=== PATIENT | male | born 1945 | race Caucasian/White ===

== ENCOUNTER → 2016-04-21 | Outpatient (CLI) | payer OTHER | LOC: FIMAGING 07:29 | PROVIDERS: ATTEND Physician Assistant | DX: M47.896 Other spondylosis, lumbar region (principal) ==

== ENCOUNTER 2016-08-31 15:21 | Inpatient (IN) | payer OTHER ==
--- NOTE | 2016-08-31 15:59 | CPEKG ---
Heart Rate: 105 RR Interval: 571 QRSD Interval: 80 QT Interval: 300 QTC Interval: 397 QRS [place]: 34 T Wave [place]: 226 EKG Severity - ABNORMAL ECG - EKG Impression: ATRIAL FIBRILLATION EKG Impression: PAIRED VENTRICULAR PREMATURE COMPLEXES Electronically Signed By: Penelope Lopez 31-Aug-2016 22:31:41
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
[2016-08-31 16:32] LABS: % IMMATURE GRANULYOCYTES 0.6 % (0.0-1.1); ABSOLUTE IMMATURE GRANULOCYTES 0.06 10^3/uL (0.00-0.10); ADD DIFF? NO; ADD MORPH? NO; ADD SCAN? NO; ATYPICAL LYMPHOCYTE FLAG 0 (0-99); FRAGMENT RBC FLAG 0 (0-99); HEMATOCRIT 46.9 % (40.0-51.0); HEMOGLOBIN 16.4 g/dL (13.7-17.5); LEFT SHIFT FLG 0 (0-99); LIPEMIA HEMOLYSIS FLAG 90 (0-99); MEAN CELL HEMOGLOBIN 31.5 pg (27.9-34.1); MEAN CELL VOLUME 90.2 fL (81.5-99.8); MEAN PLATELET VOLUME 9.7 fL (8.7-11.7); PLATELET CLUMPS FLAG 10 (0-99); PLATELET COUNT 213 10^3/uL (150-400); RED CELL DISTRIBUTION WIDTH 13.1 % (11.5-15.2)
[2016-08-31 16:38] LABS: ANION GAP 13 mEq/L (8-16); CALCIUM 9.8 mg/dL (8.5-10.4); CARBON DIOXIDE 20 mEq/l (22-31); CHLORIDE 99 mEq/L (97-110); CREATININE 0.9 mg/dL (0.7-1.3); GLOMERULAR FILTRATION RATE > 60; GLUCOSE 85 mg/dL (70-100); POTASSIUM 4.7 mEq/L (3.5-5.2); SODIUM 132 mEq/L (134-144); SPECIMEN HEMOLYSIS 100
[2016-08-31] MEDS ORDERED: IOPAMIDOL (ISOVUE 370) 100 ML BTL IV ONE (18:27)
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
[2016-08-31] MEDS: CLOPIDOGREL BISULFATE 75 MG TAB PO SCH (21:14)
[2016-09-01 05:14] LABS: CHOLESTEROL 115 mg/dL (140-220); CHOLESTEROL/HDL RATIO 3.11 RATIO (1.00-4.97); HIGH DENSITY LIPOPROTEIN 37 mg/dL (40-65); LDL/HDL RATIO 1.49 RATIO (1.00-3.64); LOW DENSITY LIPOPROTEIN 55 mg/dL (80-100); NON-HIGH DENSITY LIPOPROTEIN 78 mg/dL (90-129); TRIGLYCERIDE 115 mg/dL (40-150); VERY LOW DENSITY LIPOPROTEINS 23 mg/dL (8-25)
[2016-09-01] MEDS: ATORVASTATIN CALCIUM 10 MG TAB PO SCH (08:47)
[2016-09-01] MEDS: CLOPIDOGREL BISULFATE 75 MG TAB PO SCH (08:47)
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
[2016-09-01 10:42] LABS: HEMOGLOBIN A1C 5.4 % (4.0-6.0)
--- NOTE | 2016-09-01 11:25 | ECHO ---
[id number] + + [address] : : [place] [address] : : [phone] + Adult Echocardiographic Report + ------+ :Name: EFREM GONZÁLES LStudy Date: 09/01/2016 08:11 AM : : Hospital Admission Number: [id number] Locatio n: 353: :: 1945 Gender: Male Height: 69 in : :Age: 71 yrs Race: WH,White Weight: 220 lb : :Reason For Study: Eval for Embolic Source : : BSA: 2.2 meters 2 : :History: TIA, History of AVR, Atrial Fibrillation : + ------+ MMode/2D Measurements \T\ Calculations IVSd: 1.2 cm LVIDd: 4.6 cm FS: 37.4 % Ao root diam: 3.4 cm LVPWd: 1.3 cm LVIDs: 2.9 cm EDV(Teich): 96.9 ml ACS: 1.8 cm ESV(Teich): 31.5 ml EF(Teich): 67.5 % LVOT diam: 2.2 cm LVOT area: 3.8 cm2 Normal Measurement Values: + + :LVIDd (3.5-5.7cm) IVSd (0.6-1.1cm) LVPWd (0.6-1.1cm) Aortic Root (2.0-3.7cm)Left Atrium (1.5-4.0cm): :LV Vol(d) (76-115ml) LV Vol(s) (29-48ml) Ejec Fraction (50-65%)PV Miller (0.6- 1.2m/s) TV Miller (0.4-1.0m/s) : :MV E Miller (0.8-1.0m/s)MV A Miller (0.3-1.0m/s)LVOT Miller (0.7-1.2m/s) Asc Ao Miller ( 0.9-1.8m/s) : + + Doppler Measurements \T\ Calculations MV E max miller: Ao V2 max: LV V1 max: SV(LVOT): 86.4 cm/sec 283.7 cm/sec 95.3 cm/sec 100.8 ml MV A max miller: Ao max P.2 mmHgLV V1 max P.7 cm/sec Ao mean P.6 mmHg MV E/A: 0.86 19.1 mmHg LV V1 mean PG: Ao V2 mean: 1.7 mmHg 205.9 cm/sec LV V1 mean: Ao V2 VTI: 63.8 cm 58.4 cm/sec LV V1 VTI: 26.5 cm MELODY(I,D): 1.6 cm2 MELODY(V,D): 1.3 cm2 PA V2 max: 160.2 cm/sec PA max P.3 mmHg Left Ventricle The left ventricle is normal in size. There is mild concentric left ventricular hypertrophy. The left ventricular ejection fraction is normal. There is Doppler evidence for diastolic dysfunction. Ejection Fraction = 68%. The left ventricular wall motion is normal. Right Ventricle The right ventricle is normal in size and function. Atria The left atrial size is normal. Right atrial size is normal. Mitral Valve There is mild mitral annular calcification. There is no mitral valve stenosis. There is no mitral regurgitation noted. Tricuspid Valve The tricuspid valve is normal in structure and function. There is trace tricuspid regurgitation. Aortic Valve There is a bioprosthetic valve in the aortic position. It is not well seen. The mean gradient is 19 mmHg c/w mild aortic stenosis. There is no aortic insufficiency. Pulmonic Valve The pulmonic valve is not well visualized. There is no pulmonic valvular regurgitation. Great Vessels The aortic root is normal size. Pericardium/Pleural There is no pericardial effusion. Conclusion A complete two-dimensional transthoracic echocardiogram was performed (2D, M-mode, Doppler and color flow Doppler). 1. The left ventricle is normal in size. There is mild concentric left ventricular hypertrophy. The Ejection Fraction = 68%. 2. There is mild mitral annular calcification. There is no mitral regurgitation noted. 3. There is a bioprosthetic valve in the aortic position. It is not well seen. The mean gradient is 19 mmHg c/w mild aortic stenosis. There is no aortic insufficiency. 4. When compared to the 06/06/12 study. The aortic valve has been replaced. 5. No source of emboli detected on TTE. Consider UVALDO if clinically indicated. Final Reading Physician: Teo Tariq MD electronically signed on 09/01/2016 11:23 AM Ordering Physician: Gerber Luna Performed By: Anant Cr, HEMACS
[2016-09-01 12:58] LABS: MAGNESIUM 2.2 mg/dL (1.6-2.3); POTASSIUM 4.8 mEq/L (3.5-5.2)
--- NOTE | 2016-09-01 14:11 | HOSPPROG ---
Hospitalist Progress Note Assessment/Plan: Patient is a 71-year-old male with a history of hypertension aortic valve replacement who presented with a right-sided visual field cut. Today is my 1st encounter with the patient. Chart reviewed. * Subacute ischemic stroke this is noted in the left occipital area he was not a candidate for tPA due to the timing will need anticoagulation in 10-14 days/ cardiology to see today prior to discharge in the interim he will be bridged with aspirin therapy of 325 mg, prior to this he had been on 81 mg LDL is 55 A1C is 5.4 reviewed telelmetry strips/ did not see any afib, but sinus w frequent PVC's * right vision loss secondary from the stroke * hypertension normotensive * hyperlipidemia statin therapy * history of atrial fibrillation * bioprosthetic aortic valve replacement * obstructed sleep apnea on CPAP * plan. Will ask Cardiology to follow up and recommend anticoagulation. To follow up with Neurology in 4-6 weeks. Subjective: Boyd is feeling fine except for a mild headache. Objective: Vital Signs Temp Pulse Resp BP Pulse Ox 36.6 C 82 16 137/98 H 95 09/01/16 12:37 09/01/16 12:37 09/01/16 12:37 09/01/16 12:52 09/01/16 12:37 Laboratory Results 09/01/16 12:26 08/31/16 09/01/16 09/02/16 05:59 05:59 05:59 Intake Total 1200 Balance 1200 - Physical Exam Constitutional: no apparent distress Ears, Nose, Mouth, Throat: hearing normal Cardiovascular: regular rate and rhythym, other (few early beats) Respiratory: no respiratory distress Gastrointestinal: normoactive bowel sounds Skin: warm, normal color Musculoskeletal: full muscle strength Neurologic: AAOx3, sensation intact bilaterally, CN II-XII Intact, No weakness, No numbness, No pronator drift, No facial droop Psychiatric: interacting appropriately, not anxious, not encephalopathic ICD10 Worksheet Patient Problems: Problems Problem Status Onset Occipital infarction Acute
--- NOTE | 2016-09-01 14:23 | CPEKG ---
Heart Rate: 80 RR Interval: 750 P-R Interval: 164 QRSD Interval: 82 QT Interval: 372 QTC Interval: 430 P [place]: 59 QRS [place]: 12 T Wave [place]: 50 EKG Severity - ABNORMAL ECG - EKG Impression: SINUS RHYTHM EKG Impression: PAIRED VENTRICULAR PREMATURE COMPLEXES EKG Impression: LEFT ATRIAL ABNORMALITY Electronically Signed By: Teo Carrera 01-Sep-2016 16:04:15
[2016-09-01] MEDS: ASPIRIN EC 325 MG TAB PO SCH (14:43)
--- NOTE | 2016-09-01 15:24 | PDIAF ---
- Diagnosis Diagnosis: subacute stroke - Medication Management Discharge Medications: Medications to Continue on Transfer Atorvastatin Calcium [Lipitor 10 mg (*)] 10 mg PO DAILY 05/04/15 [Last Taken ] Verapamil ER [Calan SR/ER 240MG (*)] 240 mg PO DAILY8 05/04/15 [Last Taken 08/31] Aspirin EC [Aspirin EC 325 mg (*)] 325 mg PO DAILY tab 09/01/16 [Last Taken Unknown] Discharge Medications: Refer to the Discharge Home Medication list for PRN reason. - Orders Services needed: Home Care, Physical Therapy, Occupational Therapy, Speech Language Pathologist Home Care Face to Face: I certify that this patient was under my care and that I had the required [id number] encounter meeting the encounter requirements on the discharge day. My findings support the fact that the patient is homebound as defined in CMS Chapter 7 Medicare Benefits Manual 30.1.1, The condition of the patient is such that there exists a normal inability to leave home and consequently, leaving home would require a considerable and taxing effort. Diet Recommendation: no restrictions on diet Diet Texture: Regular Texture Diet Additional: patient has some vision loss in right eye/ please evaluate home for safety, etc - Follow Up Care Current Providers and Referrals: Cristiano Lincoln MD [Medical Doctor] - Max Urias DO [Doctor of Osteopathy] - Jeferson Kearns MD [Primary Care Provider] - As per Instructions
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
[2016-09-02 05:07] LABS: ANION GAP 10 mEq/L (8-16); CALCIUM 9.6 mg/dL (8.5-10.4); CARBON DIOXIDE 21 mEq/l (22-31); CHLORIDE 105 mEq/L (97-110); CREATININE 0.9 mg/dL (0.7-1.3); GLOMERULAR FILTRATION RATE > 60; GLUCOSE 87 mg/dL (70-100); POTASSIUM 4.3 mEq/L (3.5-5.2); SODIUM 136 mEq/L (134-144)
[2016-09-02] MEDS ORDERED: NS 1,000 ML IV SCH (06:00)
[2016-09-02] MEDS ORDERED: fentaNYL 100 MCG/2 ML INJ IVP ONE (06:36)
[2016-09-02] MEDS ORDERED: BENZOCAINE UNIT DOSE SPRAY HURRICAINE MM ONE (06:36)
[2016-09-02] MEDS ORDERED: NS 1,000 ML IV ONE (06:36)
[2016-09-02] MEDS ORDERED: MIDAZOLAM 2 MG/2 ML VIAL IVP ONE (06:36)
[2016-09-02] MEDS ORDERED: MIDAZOLAM 2 MG/2 ML VIAL ONE (09:31)
[2016-09-02] MEDS ORDERED: fentaNYL 100 MCG/2 ML INJ ONE (09:31)
[2016-09-02] MEDS ORDERED: LIDOCAINE 1% 300 MG/30 ML SDV ONE (13:15)
[2016-09-02] MEDS ORDERED: LIDOCAINE 1% 5 ML SDV ID ONE (13:30)
--- NOTE | 2016-09-02 14:18 | CPIP ---
[f rep st] INVASIVE CARDIAC PROCEDURE DATE OF PROCEDURE: 09/02/2016 PROCEDURE: Implantation of a Medtronic LINQ. INDICATIONS: The patient is 71 years old. He has a history of previous bioprosthetic aortic valve replacement surgery and a distant history of an episode of atrial fibrillation. He presents now wit h an occipital infarct. TECHNIQUE: Following informed consent, in the fasting state, the patient was brought to the CVC. T he 4th intercostal space was identified by landmarks. This area was infiltrated with lidocaine. A #15 blade was used to make a small incision. The Medtronic LINQ was then "injected" underneath the skin. The wound was closed with 2 hayde. COMPLICATIONS: None. DISPOSITION: Patient will be returned to his room and discharged home likely later today. /[id number]/MODL
[2016-09-02] MEDS: ASPIRIN EC 325 MG TAB PO SCH (14:31)
[2016-09-02] MEDS: ATORVASTATIN CALCIUM 10 MG TAB PO SCH (14:31)
--- NOTE | 2016-09-02 15:30 | HOSPPROG ---
Hospitalist Progress Note Assessment/Plan: Patient is a 71-year-old male with a history of hypertension aortic valve replacement who presented with a right-sided visual field cut. * Subacute ischemic stroke this is noted in the left occipital area he was not a candidate for tPA due to the timing will need anticoagulation in 10-14 days in the interim he will be bridged with aspirin therapy of 325 mg, prior to this he had been on 81 mg LDL is 55 A1C is 5.4 reviewed telemetry strips/ did not see any afib, but sinus w frequent PVC's UVALDO did not show any emboli/ LINQ monitor placed this afternoon. continues to have vision loss in his r eye/ he knows not to drive till cleared by neurology, likely needs to see an glazier apprentice in addition * right vision loss secondary from the stroke * hypertension normotensive * hyperlipidemia statin therapy * history of atrial fibrillation * bioprosthetic aortic valve replacement * obstructed sleep apnea on CPAP * plan. s/p UVALDO (with Dr Tariq)/ patient received sedation and lives alone/ LINQ monitor placed this after noon by Dr Samaniego/Dr Tariq spoke with Leopoldo EMERSON who works with Dr Lincoln. The patient will need close f/u with Dr Lincoln in the next week to discuss anticoagulation. Very appreciative of the cardiology teams involvement. He will be dc in the a.m. as long as he is stable. Subjective: Boyd has no complaints. Objective: Vital Signs Temp Pulse Resp BP Pulse Ox 36.6 C 52 L 18 121/87 H 93 09/02/16 14:41 09/02/16 14:41 09/02/16 14:41 09/02/16 14:41 09/02/16 14:41 Laboratory Results 09/02/16 04:28 09/01/16 09/02/16 09/03/16 05:59 05:59 05:59 Intake Total 1250 Balance 1250 - Physical Exam Constitutional: no apparent distress, appears nourished, not in pain Ears, Nose, Mouth, Throat: hearing normal Cardiovascular: regular rate and rhythym Respiratory: no respiratory distress Gastrointestinal: normoactive bowel sounds Skin: warm, normal color Musculoskeletal: full muscle strength Neurologic: AAOx3, No facial droop Psychiatric: interacting appropriately, not anxious ICD10 Worksheet Patient Problems: Problems Problem Status Onset Occipital infarction Acute
[2016-09-02] MEDS ORDERED: ACETAMINOPHEN 325 MG TAB PO PRN (22:00)
[2016-09-03] MEDS: ASPIRIN EC 325 MG TAB PO SCH (08:08)
[2016-09-03] MEDS: ATORVASTATIN CALCIUM 10 MG TAB PO SCH (08:08)
[2016-09-03] MEDS ORDERED: VERAPAMIL ER 120 MG TAB PO SCH (11:00)
--- NOTE | 2016-09-03 11:11 | PDIAF ---
- Diagnosis Diagnosis: subacute stroke - Medication Management Discharge Medications: Medications to Continue on Transfer Atorvastatin Calcium [Lipitor 10 mg (*)] 10 mg PO DAILY 05/04/15 [Last Taken ] Aspirin EC [Aspirin EC 325 mg (*)] 325 mg PO DAILY tab 09/01/16 [Last Taken Unknown] Verapamil ER [Calan SR/ER 120MG (*)] 120 mg PO DAILY #10 tab 09/03/16 [Last Taken Unknown] Discharge Medications: Refer to the Discharge Home Medication list for PRN reason. - Orders Services needed: Home Care, Physical Therapy, Occupational Therapy, Speech Language Pathologist Home Care Face to Face: I certify that this patient was under my care and that I had the required [id number] encounter meeting the encounter requirements on the discharge day. My findings support the fact that the patient is homebound as defined in CMS Chapter 7 Medicare Benefits Manual 30.1.1, The condition of the patient is such that there exists a normal inability to leave home and consequently, leaving home would require a considerable and taxing effort. Diet Recommendation: no restrictions on diet Diet Texture: Regular Texture Diet Additional: patient has some vision loss in right eye/ please evaluate home for safety, etc. Boyd needs f/u with an opthamologist. Has right sided vision loss. See Dr Lincoln next week and Dr Urias in 4 weeks. - Follow Up Care Current Providers and Referrals: Cristiano Lincoln MD [Medical Doctor] - Max Urias DO [Doctor of Osteopathy] - Jeferson Kearns MD [Primary Care Provider] - As per Instructions
[2016-09-03 12:00] VITALS: BP 133/81; PULSE 72; RESP 18; TEMP 98.1; O2SAT 92
--- NOTE | 2016-09-03 13:14 | HOSPPROG ---
Hospitalist Progress Note Assessment/Plan: Patient is a 71-year-old male with a history of hypertension aortic valve replacement who presented with a right-sided visual field cut. * Subacute ischemic stroke this is noted in the left occipital area he was not a candidate for tPA due to the timing will need anticoagulation in 10-14 days in the interim he will be bridged with aspirin therapy of 325 mg, prior to this he had been on 81 mg LDL is 55 A1C is 5.4 reviewed telemetry strips/ did not see any afib, but sinus w frequent PVC's UVALDO did not show any emboli/ LINQ monitor placed this afternoon. continues to have vision loss in his r eye/ he knows not to drive till cleared by neurology, likely needs to see an diesel tractor engine mechanic in addition * right vision loss secondary from the stroke * hypertension normotensive * hyperlipidemia statin therapy * history of atrial fibrillation has been in sinus during his stay * bioprosthetic aortic valve replacement * obstructed sleep apnea on CPAP * plan. dc home/home care, close f/u with cardiology and neurology Subjective: Boyd is feeling fine, bored and looking forward to going home. Objective: Vital Signs Temp Pulse Resp BP Pulse Ox 36.7 C 72 18 133/81 H 92 09/03/16 11:59 09/03/16 11:59 09/03/16 11:59 09/03/16 11:59 09/03/16 11:59 Laboratory Results 09/02/16 04:28 09/02/16 09/03/16 09/04/16 05:59 05:59 05:59 Intake Total 1250 800 400 Balance 1250 800 400 - Physical Exam Constitutional: no apparent distress, appears nourished, not in pain Ears, Nose, Mouth, Throat: hearing normal Cardiovascular: regular rate and rhythym, other (extra beats) Respiratory: no respiratory distress Gastrointestinal: normoactive bowel sounds Skin: warm Musculoskeletal: full muscle strength Neurologic: AAOx3, asterixes, No facial droop Psychiatric: interacting appropriately, not anxious ICD10 Worksheet Patient Problems: Problems Problem Status Onset Occipital infarction Acute
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
== END 2016-09-03 15:03 | disposition home or self-care (01) | DRG 42 ==
LOC: F3N 18:47 → OBSVTOIN 09-01 15:46
PROVIDERS: ADMIT Internal Medicine; ATTEND Internal Medicine
PROC: 0JH632Z Insertion of Monitoring Device into Chest Subcutaneous Tissue and Fascia, Percutaneous Approach (ICD-10-PCS; principal; 2016-09-01)
DX: I63.59 Cerebral infarction due to unspecified occlusion or stenosis of other cerebral artery (principal); H53.9 Unspecified visual disturbance; I48.0 Paroxysmal atrial fibrillation; G47.33 Obstructive sleep apnea (adult) (pediatric); I10 Essential (primary) hypertension; E78.5 Hyperlipidemia, unspecified; Z95.2 Presence of prosthetic heart valve
CPT/HCPCS: 92507-GN; 92523-GN; 97161-GP; 97165-GO; C1764; G0378; G8978-GP-CI; G8979-GP-CI; G8980-GP-CI; G8987-GO-CI; G8988-GO-CI; G8989-GO-CI; G9165-GN-CI; G9166-GN-CH; J2250; J3010; Q9967

== ENCOUNTER 2016-10-18 12:38 | Observation (INO) | payer OTHER ==
--- NOTE | 2016-10-18 12:50 | CPEKG ---
Heart Rate: 80 RR Interval: 750 P-R Interval: 164 QRSD Interval: 86 QT Interval: 404 QTC Interval: 466 P [place]: 63 QRS [place]: 27 T Wave [place]: 5 EKG Severity - ABNORMAL ECG - EKG Impression: SINUS RHYTHM EKG Impression: VENTRICULAR BIGEMINY EKG Impression: Similar to previous Electronically Signed By: Max Gonzalez 18-Oct-2016 13:22:57
[2016-10-18 13:27] LABS: ANION GAP 16 mEq/L (8-16); CALCIUM 9.9 mg/dL (8.5-10.4); CARBON DIOXIDE 20 mEq/l (22-31); CHLORIDE 105 mEq/L (97-110); CREATININE 0.9 mg/dL (0.7-1.3); GLOMERULAR FILTRATION RATE > 60; GLUCOSE 75 mg/dL (70-100); POTASSIUM 4.1 mEq/L (3.5-5.2); SODIUM 141 mEq/L (134-144)
[2016-10-18 13:30] LABS: % IMMATURE GRANULYOCYTES 0.3 % (0.0-1.1); ABSOLUTE IMMATURE GRANULOCYTES 0.02 10^3/uL (0.00-0.10); ADD DIFF? NO; ADD MORPH? NO; ADD SCAN? NO; ATYPICAL LYMPHOCYTE FLAG 10 (0-99); FRAGMENT RBC FLAG 0 (0-99); HEMATOCRIT 46.5 % (40.0-51.0); HEMOGLOBIN 16.2 g/dL (13.7-17.5); LEFT SHIFT FLG 0 (0-99); LIPEMIA HEMOLYSIS FLAG 90 (0-99); MEAN CELL HEMOGLOBIN 31.1 pg (27.9-34.1); MEAN CELL HEMOGLOBIN CONCENTR. 34.8 g/dL (32.4-36.7); MEAN CELL VOLUME 89.3 fL (81.5-99.8); MEAN PLATELET VOLUME 9.5 fL (8.7-11.7); PLATELET CLUMPS FLAG 0 (0-99); PLATELET COUNT 166 10^3/uL (150-400); RED BLOOD CELL COUNT 5.21 10^6/uL (4.40-6.38)
--- NOTE | 2016-10-18 13:36 | EDPHY ---
H & P Stated Complaint: cp for 4 hrs/hx of aortic valve repair Time Seen by Provider: 10/18/16 13:20 HPI/ROS: CHIEF COMPLAINT: Chest pain HISTORY OF PRESENT ILLNESS: Patient is a 71-year-old man with a history of recent occipital stroke, right-sided vision loss and atrial fibrillation as well as remote history of bioprosthetic aortic valve replacement who comes to the emergency department complaining of chest pressure for the last 5 hours. This began at rest. He denies shortness of breath does complain of increased pressure with deep inspiration. He denies any nausea vomiting or diaphoresis. No palpitations or lightheadedness. He is currently taking Eliquis. REVIEW OF SYSTEMS: Constitutional: denies: chills, fever, recent illness, recent injury EENTM: denies: blurred vision, double vision, nose congestion Respiratory: denies: cough, shortness of breath Cardiac: See HPI Gastrointestinal/Abdominal: denies: abdominal pain, diarrhea, nausea, vomiting, blood streaked stools Genitourinary: denies: dysuria, frequency, hematuria, pain Musculoskeletal: denies: joint pain, muscle pain Skin: denies: lesions, rash, jaundice, bruising Neurological: denies: headache, numbness, paresthesia, tingling, dizziness, weakness Hematologic/Lymphatic: denies: blood clots, easy bleeding, easy bruising Immunologic/allergic: denies: HIV/AIDS, transplant EXAM: GENERAL: Well-appearing, well-nourished and in no acute distress. HEAD: Atraumatic, normocephalic. EYES: Pupils equal round and reactive to light, extraocular movements intact, sclera anicteric, conjunctiva are normal. ENT: TMs normal, nares patent, oropharynx clear without exudates. Moist mucous membranes. NECK: Normal range of motion, supple without lymphadenopathy or JVD. LUNGS: Breath sounds clear to auscultation bilaterally and equal. No wheezes rales or rhonchi. HEART: Regular rate and rhythm without murmurs, rubs or gallops. ABDOMEN: Soft, nontender, normoactive bowel sounds. No guarding, no rebound. No masses appreciated. BACK: No CVA tenderness, no spinal tenderness, step-offs or deformities EXTREMITIES: Normal range of motion, no pitting or edema. No clubbing or cyanosis. NEUROLOGICAL: Cranial nerves II through XII grossly intact. Normal speech, normal gait. 5/5 strength, normal movement in all extremities, normal sensation PSYCH: Normal mood, normal affect. SKIN: Warm, dry, normal turgor, no visible rashes or lesions. Source: Patient Exam Limitations: No limitations - Personal History Current Tetanus/Diphtheria Vaccine: Yes Tetanus Vaccine Date: >10 YRS - Medical/Surgical History Hx Asthma: No Hx Chronic Respiratory Disease: No Hx Diabetes: No Hx Cardiac Disease: Yes Hx Renal Disease: No Hx Cirrhosis: No Hx Alcoholism: No Hx HIV/AIDS: No Hx Splenectomy or Spleen Trauma: No Other PMH: high chol, HTN, Aortic valve replacement, hernia surgery - Family History Significant Family History: No pertinent family hx - Social History Smoking Status: Never smoked Alcohol Use: Sober Drug Use: None Constitutional: Initial Vital Signs Temperature (C) 36.3 C 10/18/16 12:41 Heart Rate 79 10/18/16 12:41 Respiratory Rate 18 10/18/16 12:41 Blood Pressure 169/104 H 10/18/16 12:41 O2 Sat (%) 96 10/18/16 12:41 O2 Delivery Mode Room Air Allergies/Adverse Reactions: No Allergies [NKDA] Allergy (Verified 10/18/16 12:40) Home Medications: Medication Instructions Recorded Atorvastatin Calcium [Lipitor 10 10 mg PO DAILY 05/04/15 mg (*)] Verapamil ER [Calan SR/ER 120MG 120 mg PO DAILY #10 tab 09/03/16 (*)] Apixaban [Eliquis] 5 mg PO BID 10/18/16 Ascorbic Acid [Vitamin C 500 mg 500 mg PO DAILY 10/18/16 (*)] Vitamin B Complex [Super B-50 1 each PO DAILY 10/18/16 Complex] Pantoprazole Sodium [Protonix] 40 mg PO DAILY #30 tablet. 10/19/16 Medical Decision Making - Diagnostics EKG Interpretation: An EKG obtained and was read and documented in trace view. Please see trace view for full reading and report. Sinus rhythm with ventricular bigeminy, similar to previous ED Course/Re-evaluation: We discussed the patient's test results which are reassuring. He is still having mild symptoms. I offered admission for further workup and observation and he agrees with this plan. 2:50 p.m. I discussed the case with Dr GOVIND Ko who will admit to the medical service for continued workup. Differential Diagnosis: Partial list of the Differential diagnosis considered include but were not limited to; chest pain, arrhythmia, acute coronary disease and although unlikely based on the history and physical exam, I also considered PE, pneumonia , pneumothorax resection. I discussed these differential diagnoses and the plan with the patient as well as the usual and expected course. The patient understands that the diagnosis is provisional and that in medicine we are not always correct and that further workup is often warranted. Usual and customary warnings were given. All of the patient's questions were answered. The patient was instructed to return to the emergency department should the symptoms at all worsen or return, otherwise to followup with the physician as we discussed. - Data Points Laboratory Results: Laboratory Results 10/18/16 12:50 10/18/16 12:50 Medications Given: Discontinued Medications Apixaban (Eliquis) 5 mg PO BID CHER Stop: 04/16/17 20:59 Last Admin: 10/19/16 08:12 Dose: 5 mg Ascorbic Acid (Vitamin C) 500 mg PO DAILY CHER Stop: 04/17/17 08:59 Last Admin: 10/19/16 08:12 Dose: 500 mg Atorvastatin Calcium (Lipitor) 10 mg PO DAILY CHER Stop: 04/17/17 08:59 Last Admin: 10/19/16 08:12 Dose: 10 mg Ketorolac Tromethamine (Toradol) 15 mg IVP ONCE ONE Stop: 10/19/16 12:53 Last Admin: 10/19/16 13:18 Dose: 15 mg Verapamil HCl (Calan Sr) 120 mg PO DAILY CHER Stop: 04/17/17 08:59 Last Admin: 10/19/16 08:12 Dose: 120 mg Vitamin B Complex (Vitamin B Complex) 1 ea PO DAILY CHER Stop: 04/17/17 08:59 Last Admin: 10/19/16 08:12 Dose: 1 ea Departure - Departure Disposition: [facility] Inpatient Acute Clinical Impression: Chest pain Qualifiers: Chest pain type: unspecified Qualified Code(s): R07.9 - Chest pain, unspecified Condition: Good
[2016-10-18 13:37] LABS: TROPONIN I < 0.012 ng/mL (0.000-0.034)
[2016-10-18 13:45] LABS: APTT 39.2 SEC (23.0-38.0); INR 1.34 (0.83-1.16); PROTIME(PATIENT) 16.6 SEC (12.0-15.0)
[2016-10-18] MEDS ORDERED: HYDROCODONE/APAP 5/325 TAB PO PRN (15:03)
[2016-10-18] MEDS ORDERED: ONDANSETRON 4 MG/2 ML VIAL IVP PRN (15:03)
[2016-10-18] MEDS ORDERED: ONDANSETRON DISINTEGRATING 4 MG TAB PO PRN (15:03)
[2016-10-18] MEDS ORDERED: ACETAMINOPHEN 325 MG TAB PO PRN (15:03)
--- NOTE | 2016-10-18 17:59 | GHP ---
[f rep st] HISTORY AND PHYSICAL DATE OF ADMISSION: 10/18/2016 CHIEF COMPLAINT: Chest pain. HISTORY OF PRESENT ILLNESS: This is a 71-year-old male with a history of hypertension, hyperlipidem ia, and recent left occipital stroke with right visual deficits persistent, who presents with interm ittent chest pain that he describes as a straining, pressure-like pain in the left chest that he exp eriences, per his report, intermittently since his stroke, that began the morning of presentation at approximately 9:30 a.m. and has been persistent until my evaluation at approximately 3 p.m. The pa michelle describes no exertional component to this, or positional component, and believes it may be a l ittle worse when he takes a deep breath but cannot clearly say so. He cannot describe anything that clearly relieves the pain. The patient says the pain is not associated with nausea, vomiting, diap horesis, or clear shortness of breath. Denies any palpitations. Patient has had intermittent light headedness recently/dizziness that he attributes to his right eye vision deficits. He has been work ing with various contact lenses and glasses and believes that the vision deficits are occasionally p rovoked by changes in his glasses, contact lenses, or position. The patient denies any lower extrem ity edema. Denies any changes in his bowel habits, dysuria or hematuria. PAST MEDICAL HISTORY: 1. 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 2. Hypertension. 3. Hyperlipidemia. 4. Atrial fibrillation. 5. History of bioprosthetic aortic valve replacement. 6. Obstructive sleep apnea. 7. BPH. SOCIAL HISTORY: Negative for tobacco, alcohol, or illicit drugs. FAMILY HISTORY: Positive for a brother who has had multiple pacemakers placed and a sister with a h istory of a valve replacement. ADVANCE DIRECTIVES: Patient is full COR, full tube. REVIEW OF SYSTEMS: A 10-point review of systems is negative with the exception of that reported in the HPI. PHYSICAL EXAMINATION: VITAL SIGNS: Blood pressure 147/84, heart rate 56, respiratory rate 12, 96% on room air, 36.6. GENERAL: This is a very pleasant, middle-aged male in no acute distress. HEENT : Notable for moist mucous membranes. Eye exam is negative for any icterus. CARDIAC: Regular rat e and rhythm. A systolic murmur is appreciated. PULMONARY: He has good respiratory effort, is ledy ar to auscultation bilaterally. GASTROINTESTINAL: Positive bowel sounds. ABDOMEN: Soft and nonte nder in all 4 quadrants. MUSCULOSKELETAL: Negative for any lower extremity edema. SKIN: Negative for any rashes. NEUROLOGIC: He is alert and oriented x3. PSYCHIATRIC: He is pleasant and nick ative on interview and examination. DATA: White count 7.2, hematocrit 46.5, platelet count 166. INR of 1.34. Sodium 141, creatinine i s 0.9. Troponin is less than 0.012. EKG, which I personally reviewed and interpreted, shows sinus rhythm with PVCs with normal axis, normal intervals, and no acute ST-T changes. Chest x-ray, which I personally reviewed and interpreted, shows no acute infiltrates or edema. ASSESSMENT AND PLAN: This is a 71-year-old male, presenting with complaints of chest pain. 1. Acute chest pain. The patient has had several hours of symptoms without a troponin excursion, w hich is reassuring. EKG is also negative at presentation. Will admit the patient to the PCU for se rial troponins and EKGs. If he rules out overnight, can plan on stress testing in the morning. 2. Hypertension. Patient's blood pressure is adequately controlled on his home medications. We wi ll continue these. 3. Hyperlipidemia. We will continue patient's statin therapy without alteration. 4. Atrial fibrillation. The patient appears to be in sinus on monitoring. Will continue his Eliqu is and verapamil. 5. Bioprosthetic aortic valve replacement. Patient does not have any symptoms consistent with hear t failure. We will continue to monitor. 6. Recent cerebrovascular accident. Will continue patient's Eliquis and statin. 7. Diet: Cardiac. 8. Prophylaxis: Eliquis. DISPOSITION: I expect in less than 2 midnights, if the patient rules out and has negative stress te sting. I discussed the case with the emergency room physician. Patient will be triaged to the PCU for care. /[id number]/MODL
[2016-10-18] MEDS: APIXABAN 5 MG TAB PO SCH (20:50)
[2016-10-19 06:03] LABS: ANION GAP 14 mEq/L (8-16); CALCIUM 9.5 mg/dL (8.5-10.4); CARBON DIOXIDE 21 mEq/l (22-31); CHLORIDE 106 mEq/L (97-110); CREATININE 0.9 mg/dL (0.7-1.3); GLOMERULAR FILTRATION RATE > 60; GLUCOSE 73 mg/dL (70-100); POTASSIUM 3.9 mEq/L (3.5-5.2); SODIUM 141 mEq/L (134-144)
[2016-10-19] MEDS: APIXABAN 5 MG TAB PO SCH (08:12)
[2016-10-19] MEDS ORDERED: VERAPAMIL ER 120 MG TAB PO SCH (09:00)
[2016-10-19] MEDS ORDERED: ENOXAPARIN 40 MG/0.4 ML SYR SC SCH (09:00)
[2016-10-19] MEDS ORDERED: VITAMIN B COMPLEX 1 EA CAP/TAB PO SCH (09:00)
[2016-10-19] MEDS ORDERED: NON-FORMULARY NEW DRUG (Vitamin B Complex [Super B-50 Complex] 1 EACH) PO SCH (09:00)
[2016-10-19] MEDS ORDERED: ASCORBIC ACID 500 MG TAB PO SCH (09:00)
[2016-10-19] MEDS ORDERED: ATORVASTATIN CALCIUM 10 MG TAB PO SCH (09:00)
--- NOTE | 2016-10-19 09:48 | CPEKG ---
Heart Rate: 97 RR Interval: 619 P-R Interval: 172 QRSD Interval: 84 QT Interval: 388 QTC Interval: 493 P [place]: 63 QRS [place]: 20 T Wave [place]: -73 EKG Severity - ABNORMAL ECG - EKG Impression: SINUS RHYTHM EKG Impression: PAIRED VENTRICULAR PREMATURE COMPLEXES EKG Impression: PROBABLE LEFT ATRIAL ABNORMALITY EKG Impression: NONSPECIFIC T ABNORMALITIES, INFERIOR LEADS Electronically Signed By: Teo Carrera 19-Oct-2016 21:56:18
[2016-10-19 11:36] VITALS: PULSE 68
[2016-10-19] MEDS ORDERED: KETOROLAC 15 MG/1 ML SDV IVP ONE (12:52)
[2016-10-19] MEDS ORDERED: REGADENOSON 0.4 MG/5 ML SYR IVP ONE (14:23)
--- NOTE | 2016-10-19 14:56 | PDCARST ---
CAR Stress Test Results Type of Stress Test: Lexiscan stress test Indication: cp Description of Procedure: After informed consent was obtained, pt was established to ECG, blood pressure, HR and oximetry monitoring. STRESS EKG AND HEMODYNAMIC DATA. Resting heart rate: 80 BPM. Resting ECG: SR with frequent unifocal PVCs. Resting blood pressure: 152/92 mmHg. O2 saturation at rest: 95. Peak heart rate: 91 BPM. Peak blood pressure: 138/82 mmHg. Arrhythmias: frequent PVCs throughout. Symptoms: The patient experienced no typical symptoms of angina during stress or recovery. Stress/Infusion ECG: No change in rhythm with no significant ST/T wave changes. Stress/infusion O2 saturation: 92 Impression: Uneventful Lexiscan infusion Conclusion: Await nuclear images.
[2016-10-19 15:39] VITALS: BP 166/77; RESP 16; TEMP 97.7; O2SAT 94
--- NOTE | 2016-10-19 19:22 | GDS ---
[f rep st] DISCHARGE SUMMARY DISCHARGE DIAGNOSES: 1. Chest pain. 2. Hypertension. 3. Hyperlipidemia. 4. History of atrial fibrillation. HISTORY: For details, please see the history and physical dated October 18. In brief, the patient i s a 71-year-old male with history of hypertension, hyperlipidemia, and prior left occipital stroke w ho presents to the emergency department with chest pain. He was admitted to the hospital for furthe r evaluation. HOSPITAL COURSE: Patient was admitted to the cardiac telemetry unit. He had several hours of sympt oms with a negative troponin on arrival. He had 2 further negative troponins. His EKG was nonische anne. He underwent nuclear medicine stress testing which was negative for ischemia. 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 Cristiano Lincoln, in the outpatient setting. The patient is stable for disc [facility] [place] [facility]. DISPOSITION: Patient is discharged home in stable condition. DISCHARGE MEDICATIONS: Please see [facility] for completed outpatient medication list. He will contin ue all outpatient medications as prescribed including atorvastatin, verapamil, and Eliquis. New [facility] cations on discharge include Protonix 40 mg p.o. daily, #30, no refills. FOLLOWUP: 1. Dr. Cristiano Lincoln, cardiology. 2. Dr. Jeferson Kearns, primary care. /[id number]/MODL
== END 2016-10-19 19:11 | disposition home or self-care (01) ==
LOC: F2W 17:22
PROVIDERS: ADMIT Hospitalist; ATTEND Hospitalist
DX: R07.9 Chest pain, unspecified (principal); I10 Essential (primary) hypertension; E78.5 Hyperlipidemia, unspecified; I69.398 Other sequelae of cerebral infarction; G47.33 Obstructive sleep apnea (adult) (pediatric); Z86.79 Personal history of other diseases of the circulatory system; Z95.2 Presence of prosthetic heart valve
CPT/HCPCS: 71020; 78452; 93005; 93017; 99285; A9500; G0378; J1885; J2785

== ENCOUNTER 2017-02-20 21:12 | Emergency (ER) | payer OTHER ==
[2017-02-20 21:19] VITALS: TEMP 98.6
--- NOTE | 2017-02-20 21:24 | EDPHY ---
H & P Stated Complaint: chest congestion, cough, fatigue Time Seen by Provider: 02/20/17 21:24 - Personal History Current Tetanus/Diphtheria Vaccine: Yes Tetanus Vaccine Date: >10 YRS - Medical/Surgical History Hx Asthma: No Hx Chronic Respiratory Disease: No Hx Diabetes: No Hx Cardiac Disease: Yes Hx Renal Disease: No Hx Cirrhosis: No Hx Alcoholism: No Hx HIV/AIDS: No Hx Splenectomy or Spleen Trauma: No Other PMH: high chol, HTN, Aortic valve replacement, hernia surgery,. CVA x4 months ago, - Social History Smoking Status: Never smoked Constitutional: Initial Vital Signs Temperature (C) 37 C 02/20/17 21:15 Heart Rate 96 02/20/17 21:15 Respiratory Rate 20 02/20/17 21:15 Blood Pressure 175/97 H 02/20/17 21:15 O2 Sat (%) 94 02/20/17 21:15 O2 Delivery Mode Room Air Allergies/Adverse Reactions: No Allergies [NKDA] Allergy (Verified 02/20/17 21:15) Home Medications: Medication Instructions Recorded Atorvastatin Calcium [Lipitor 10 10 mg PO DAILY 05/04/15 mg (*)] Verapamil ER [Calan SR/ER 120MG 120 mg PO DAILY #10 tab 09/03/16 (*)] Apixaban [Eliquis] 5 mg PO BID 10/18/16 Ascorbic Acid [Vitamin C 500 mg 500 mg PO DAILY 10/18/16 (*)] Vitamin B Complex [Super B-50 1 each PO DAILY 10/18/16 Complex] Pantoprazole Sodium [Protonix] 40 mg PO DAILY #30 tablet. 10/19/16 AZITHROMYCIN [Z-PACK] 250 mg PO DAILY #1 packet 02/20/17 Medical Decision Making - Diagnostics Imaging Results: Imaging Impressions Chest X-Ray 02/20/17 21:37 Impression: No definite pneumonia. Imaging: I viewed and interpreted images myself ED Course/Re-evaluation: CHIEF COMPLAINT: Cough HISTORY OF PRESENT ILLNESS: The patient is an anticoagulated 71 y/o male complaining of significant cough, chills, and dyspnea for the last 2 days. He has a history of hypertension, hypercholesterolemia, atrial fibrillation, aortic valve replacement, and CVA 4 months ago. He is an extremely poor historian and was unable to relate this medical history to me. He denies chest pain, rhinorrhea, productive cough, fever, abdominal pain, myalgias, or other symptoms. REVIEW OF SYSTEMS: A 10 point review of systems was performed and is negative with the exception of the elements mentioned in the history of present illness. PHYSICAL EXAM: HR, BP, 93% O2 Sat, RR. Temp noted General Appearance: Alert, well hydrated, appropriate, and non-toxic appearing. Head: Atraumatic without scalp tenderness or obvious injury Eyes: Pupils equal, round, reactive to light and accommodation, EOMI, no trauma , no injection. Ears: Clear bilaterally, no perforation, normal landmarks Nose: Atraumatic, no rhinorrhea, clear. Throat: There is no erythema or exudates, no lesions, normal tonsils, mucus membranes moist. Neck: Supple,nontender, no lymphadenopathy. Respiratory: No retractions, no distress, no wheezes, and no accessory muscle use. Coarse scattered rhonchi without focal deficit. Cardiovascular: Regular rate and rhythm, no murmurs, rubs, or gallops. Good capillary refill all extremities. Gastrointestinal: Abdomen is soft, nontender, non-distended, no masses, no rebound, no guarding, no peritoneal signs. Musculoskeletal: Normal active ROM of all extremities, atraumatic. Neurological: Alert, appropriate, and interactive. The patient has non-focal cranial nerves, motor, sensory, and cerebellar exam. Skin: No rashes, good turgor, no nodules on palpation. Past medical history: Plantar fascitis, sciatica, hypertension, hypercholesterolemia, started on Pradaxa 4 months ago for CVA, atrial fibrillation Past surgical history: Bioprosthetic aortic valve replacement Family history: Noncontributory Social history: Lives in [place]. 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 MEDICAL DECISION MAKING: This is a 71 y/o male who is an extremely poor historian regarding his medical history that presents with a 2-day history of cough with associated shortness of breath. He is afebrile and hemodynamically stable. He has scattered coarse rhonchi on auscultation, which could indicate pneumonia. Plan for IV, labs, chest x-ray. Labs are largely unremarkable and chest x-ray shows no infiltrate. Patient will be treated for bronchitis with 10mg PO Decadron and 500mg PO azithromycin here and scripts for azithromycin and albuterol. Standard follow up and return precautions discussed. He agrees with plan for discharge home. - Data Points Laboratory Results: Laboratory Results 02/20/17 21:36 02/20/17 21:45 02/20/17 02/20/17 02/20/17 22:30 21:45 21:45 WBC RBC Hgb Hct MCV MCH MCHC RDW Plt Count MPV Neut % (Auto) Lymph % (Auto) Tyler % (Auto) Eos % (Auto) Baso % (Auto) Nucleat RBC Rel Count Absolute Neuts (auto) Absolute Lymphs (auto) Absolute Monos (auto) Absolute Eos (auto) Absolute Basos (auto) Absolute Nucleated RBC Immature Gran % Immature Gran # PT 13.8 SEC SEC (12.0-15.0) INR 1.04 (0.83-1.16) APTT 35.0 SEC SEC (23.0-38.0) VBG Lactic Acid 1.5 mmol/L mmol/L (0.7-2.1) Sodium Potassium Chloride Carbon Dioxide Anion Gap BUN Creatinine Estimated GFR Glucose Calcium Total Bilirubin Nasal Influenza A PCR Pending Nasal Influenza B PCR Pending 02/20/17 02/20/17 21:45 21:36 WBC 9.84 10^3/uL H 10^3/uL (3.80-9.50) RBC 5.53 10^6/uL 10^6/uL (4.40-6.38) Hgb 17.5 g/dL g/dL (13.7-17.5) Hct 50.4 % % (40.0-51.0) MCV 91.1 fL fL (81.5-99.8) MCH 31.6 pg pg (27.9-34.1) MCHC 34.7 g/dL g/dL (32.4-36.7) RDW 13.4 % % (11.5-15.2) Plt Count 165 10^3/uL 10^3/uL (150-400) MPV 9.8 fL fL (8.7-11.7) Neut % (Auto) 87.8 % H % (39.3-74.2) Lymph % (Auto) 6.7 % L % (15.0-45.0) Tyler % (Auto) 3.6 % L % (4.5-13.0) Eos % (Auto) 1.2 % % (0.6-7.6) Baso % (Auto) 0.3 % % (0.3-1.7) Nucleat RBC Rel Count 0.0 % % (0.0-0.2) Absolute Neuts (auto) 8.64 10^3/uL H 10^3/uL (1.70-6.50) Absolute Lymphs (auto) 0.66 10^3/uL L 10^3/uL (1.00-3.00) Absolute Monos (auto) 0.35 10^3/uL 10^3/uL (0.30-0.80) Absolute Eos (auto) 0.12 10^3/uL 10^3/uL (0.03-0.40) Absolute Basos (auto) 0.03 10^3/uL 10^3/uL (0.02-0.10) Absolute Nucleated RBC 0.00 10^3/uL 10^3/uL (0-0.01) Immature Gran % 0.4 % % (0.0-1.1) Immature Gran # 0.04 10^3/uL 10^3/uL (0.00-0.10) PT INR APTT VBG Lactic Acid Sodium 141 mEq/L mEq/L (134-144) Potassium 4.1 mEq/L mEq/L (3.5-5.2) Chloride 102 mEq/L mEq/L (97-110) Carbon Dioxide 25 mEq/l mEq/l (22-31) Anion Gap 14 mEq/L mEq/L (8-16) BUN 19 mg/dL mg/dL (7-23) Creatinine 1.0 mg/dL mg/dL (0.7-1.3) Estimated GFR > 60 Glucose 119 mg/dL H mg/dL (70-100) Calcium 10.1 mg/dL mg/dL (8.5-10.4) Total Bilirubin 0.5 mg/dL mg/dL (0.1-1.4) Nasal Influenza A PCR Nasal Influenza B PCR Departure - Departure Disposition: Home, Routine, Self-Care Clinical Impression: Acute bronchitis Qualifiers: Bronchitis organism: other organism Qualified Code(s): J20.8 - Acute bronchitis due to other specified organisms Condition: Good Instructions: Albuterol (By breathing), Azithromycin (By mouth), Acute Bronchitis (ED) Additional Instructions: 1. Take azithromycin as prescribed. Be sure to complete the entire prescription. 2. Use albuterol as prescribed as needed for shortness of breath and cough. 3. Follow up with your primary care provider in the next 2-3 days for unimproved symptoms. 4. Use 650mg Tylenol every 4-6 hours as directed if needed for fever or pain over the next few days. 5. Return to the ED for worsening of condition. Referrals: Deyanira Alba MD [[facility] [place] Primary Care Provider] - As per Instructions Prescriptions: AZITHROMYCIN [Z-PACK] 250 mg PO DAILY #1 packet Report Scribed for: Olaf Bettencourt Report Scribed by: Kellen Mejia Date of Report: 02/20/17 Time of Report: 21:40
[2017-02-20 21:54] LABS: PLATELET COUNT 165 10^3/uL (150-400)
[2017-02-20 22:02] VITALS: BP 152/80
[2017-02-20 22:12] LABS: INR 1.04 (0.83-1.16); PROTIME(PATIENT) 13.8 SEC (12.0-15.0)
[2017-02-20] MEDS ORDERED: AZITHROMYCIN 250 MG TAB PO ONE (22:37)
[2017-02-20] MEDS ORDERED: DEXAMETHASONE 10 MG/ML VIAL PO ONE (22:37)
[2017-02-20] MEDS ORDERED: DEXAMETHASONE 4 MG TAB ONE (22:51)
[2017-02-20 23:02] VITALS: PULSE 90; RESP 18; O2SAT 93
== END 2017-02-20 22:57 | disposition home or self-care (01) ==
LOC: EDUNIT#
DX: J20.8 Acute bronchitis due to other specified organisms (principal); B95.7 Other staphylococcus as the cause of diseases classified elsewhere; I10 Essential (primary) hypertension; Z86.73 Personal history of transient ischemic attack (TIA), and cerebral infarction without residual deficits

== ENCOUNTER 2017-02-22 14:28 | Emergency (ER) | payer OTHER ==
--- NOTE | 2017-02-22 15:54 | EDPHY ---
H & P Time Seen by Provider: 02/22/17 14:58 HPI/ROS: CHIEF COMPLAINT: URI symptoms, brought back for abnormal laboratory studies HISTORY OF PRESENT ILLNESS: 71-year-old male presents to the emergency department by private vehicle after he was called today it from the emergency department with abnormal lab values. The patient had positive blood culture. The patient was seen in the emergency department 2 days ago with reports of fevers and upper respiratory symptoms. Chest x-ray was negative for pneumonia. His lactate was normal. His laboratory studies were otherwise unremarkable. Influenza was negative. He was diagnosed with bronchitis and started on Zithromax and albuterol inhaler. Since that time, the patient has been feeling much better. He still feels slightly congested in his nose however he feels that his cough is loosening up some in his chest. He denies chest pain or difficulty breathing. No rash. Prior to coming to the emergency department 2 days ago the patient did report an episode of chills and rigors, however has not had that since that time. He has not taken any antipyretics today. No back pain. No headache. No other complaints. REVIEW OF SYSTEMS: Constitutional: No fever, no chills. Eyes: No double or blurry vision. ENT: No sore throat. Respiratory: Cough, no shortness of breath. Cardiac: No chest pain. Gastrointestinal: No abdominal pain, vomiting or diarrhea. Genitourinary: No dysuria. Musculoskeletal: No neck or back pain. Skin: No rashes. Neurological: No headache. Past Medical/Surgical History: Hypertension, hypercholesterolemia, aortic valve replacement, hernia surgery, CVA 4 months ago Social History: Single and lives in [place]. Smoking Status: Never smoked Physical Exam: General Appearance: Alert, no distress. Afebrile with a temperature 36.8degrees. Blood pressure was 140/66. Eyes: Pupils equal and round. Extraocular motions are all intact. ENT: Mouth: Mucous membranes moist. Respiratory: No wheezing, rhonchi, or rales, lungs are clear to auscultation. Cardiovascular: Regular rate with bigeminy noted. Gastrointestinal: Abdomen is soft and nontender, no masses, no rebound or guarding, bowel sounds normal. Neurological: Alert and oriented x 3, cranial nerves II through XII grossly intact Skin: Warm and dry, no rashes. Musculoskeletal: Nontender to palpate along the cervical, thoracic or lumbar spine. Neck is supple. Extremities: Full range of motion and no peripheral edema. Psychiatric: Patient is oriented X 3, there is no agitation. Constitutional: Initial Vital Signs Temperature (C) 36.6 C 02/22/17 14:39 Heart Rate 50 L 02/22/17 14:39 Respiratory Rate 16 02/22/17 14:39 Blood Pressure 140/66 H 02/22/17 14:39 O2 Sat (%) 93 02/22/17 14:39 O2 Delivery Mode Room Air Allergies/Adverse Reactions: No Allergies [NKDA] Allergy (Verified 02/22/17 14:36) Home Medications: Medication Instructions Recorded Atorvastatin Calcium [Lipitor 10 10 mg PO DAILY 05/04/15 mg (*)] Verapamil ER [Calan SR/ER 120MG 120 mg PO DAILY #10 tab 09/03/16 (*)] Ascorbic Acid [Vitamin C 500 mg 500 mg PO DAILY 10/18/16 (*)] Vitamin B Complex [Super B-50 1 each PO DAILY 10/18/16 Complex] Pantoprazole Sodium [Protonix] 40 mg PO DAILY #30 tablet. 10/19/16 AZITHROMYCIN [Z-PACK] 250 mg PO DAILY #1 packet 02/20/17 Albuterol [Proventil Inhaler HFA 1 - 2 puffs IH Q4H #1 mdi 02/20/17 (*)] Pradaxa 02/22/17 Medical Decision Making ED Course/Re-evaluation: 71-year-old male presents to the emergency department after he was called to come back to the emergency department for abnormal lab test. The patient had [facility] blood [facility] showing gram-positive cocci and Staph aureus. Clinically the patient appears well. He has no complaints. He states that he feels much better. He has been taking antibiotics as prescribed. He is afebrile. He is not hypotensive. I do not think this patient is showing signs of sepsis. I spoke with the on-call infectious disease provider, Dr. Brandon Greenwood, who reviewed the patient's laboratory studies and feels that this is likely skin contaminant. He does not think that this requires further testing or repeat blood cultures. He feels that since the patient is clinically feeling much better and does not have any fevers or any other complaints, he can be discharged. I recommended close follow up with his primary care provider. He was instructed to return to the emergency department if he had any change in symptoms or if he felt worse in any way. The case was discussed with Dr. Kat Land, supervising physician, who did not directly evaluate the patient but agrees with treatment and plan. Differential Diagnosis: Including but not limited to sepsis, bronchitis, influenza, pneumonia, viral upper respiratory infection Departure - Departure Disposition: Home, Routine, Self-Care Clinical Impression: Bronchitis Condition: Good Instructions: Acute Bronchitis (ED) Additional Instructions: Continue antibiotics as prescribed. Continue inhaler as prescribed. The return to the emergency department if you develop recurring fever, if he developed chest pain or difficulty breathing, or if you feel worse in any way. We spoke with Dr. Brandon Greenwood, infectious Disease, who felt that the blood culture that was positive is likely from a skin contaminant. No further intervention is necessary especially since your feeling better. Please continue the antibiotics as prescribed and return if you feel worse. Referrals: Erik Campbell MD [Primary Care Provider] - As per Instructions
[2017-02-22 16:12] VITALS: BP 129/74; PULSE 88; RESP 18; TEMP 98.6; O2SAT 92
== END 2017-02-22 16:11 | disposition home or self-care (01) ==
DX: J20.9 Acute bronchitis, unspecified (principal); I10 Essential (primary) hypertension

== ENCOUNTER → 2017-03-22 | Outpatient (CLI) | payer OTHER | LOC: FIMAGING 12:15 | PROVIDERS: ATTEND Surgery | DX: R10.31 Right lower quadrant pain (principal); R59.9 Enlarged lymph nodes, unspecified ==